=== PATIENT | male | born 1995 | race Caucasian/White ===

== ENCOUNTER 2021-06-23 13:00 | Emergency (ER) | payer OTHER ==
[~2021-06-23] VITALS: Ht 185.4 cm; Wt 82.0 kg
[2021-06-23] MEDS ORDERED: LORAZEPAM 1MG TABLET PO ONE (13:30)
[2021-06-23 15:15] VITALS: BP 111/68
[2021-06-23] MEDS ORDERED: SODIUM CHLORIDE 0.9% 1,000 ML IV ONE (15:30)
[2021-06-23] MEDS ORDERED: LORAZEPAM 2MG/ML CPJ IV ONE (15:30)
[2021-06-23 15:48] LABS: BASOPHILS % 0.8 % (0.0-2.0); EOSINOPHILS % 0.3 % (0.0-5.0); HEMATOCRIT. 43.3 % (42.0-52.0); HEMOGLOBIN. 14.8 g/dL (14.0-18.0); LYMPHOCYTES % 22.7 % (20.0-50.0); MEAN CORPUSCULAR VOLUME 90.7 fL (80.0-94.0); MEAN PLATELET VOLUME 8.8 fl (7.4-10.4); MONOCYTES % 11.5 % (2.0-8.0); NEUTROPHILS % 64.7 % (40.0-76.0); PLATELET 241 x1000/uL (130-400); RED BLOOD CELL COUNT 4.77 mill/uL (4.7-6.1); RED CELL DISTRIBUTION WIDTH 13.6 % (11.6-14.6)
[2021-06-23 15:51] LABS: CHLORIDE 104 mEq/L (98-107)
[2021-06-23 15:57] LABS: ETHANOL BLOOD < 10 mg/dL
== END 2021-06-23 16:01 | disposition left against medical advice (07) ==
LOC: ER 13:00
DX: F41.1 Generalized anxiety disorder (principal); F15.129 Other stimulant abuse with intoxication, unspecified; F20.9 Schizophrenia, unspecified; F31.9 Bipolar disorder, unspecified
CPT/HCPCS: 36415; 71045; 80053; 80320; 84484; 85025; 99284; J7030; G0480

== ENCOUNTER 2021-06-24 17:02 | Emergency (ER) | payer OTHER ==
[~2021-06-24] VITALS: Ht 172.7 cm; Wt 80.0 kg
[2021-06-25 00:50] VITALS: BP 113/90
[2021-06-26] MEDS ORDERED: CLON0.5T23 MT ×2 (14:03→14:07)
[2021-06-26] MEDS ORDERED: ZYDS20 PO ×3 (14:03→14:07)
== END 2021-06-25 00:50 | disposition home or self-care (01) ==
LOC: ER 17:02
DX: F15.90 Other stimulant use, unspecified, uncomplicated (principal); Z86.59 Personal history of other mental and behavioral disorders; I49.9 Cardiac arrhythmia, unspecified
CPT/HCPCS: 93005; 99283

== ENCOUNTER 2021-06-26 12:12 | Emergency (ER) | payer OTHER ==
[~2021-06-26] VITALS: Ht 182.9 cm; Wt 64.0 kg
[2021-06-26 13:18] VITALS: BP 160/93
[2021-06-26] MEDS ORDERED: ZYDS20 PO ×3 (14:03→14:07)
[2021-06-26] MEDS ORDERED: CLON0.5T23 MT ×2 (14:03→14:07)
== END 2021-06-26 14:53 | disposition home or self-care (01) ==
LOC: ER 12:12
DX: F20.9 Schizophrenia, unspecified (principal); F15.10 Other stimulant abuse, uncomplicated
CPT/HCPCS: 99282

== ENCOUNTER 2021-06-26 17:33 | Emergency (ER) | payer OTHER ==
[~2021-06-26] VITALS: Ht 182.9 cm; Wt 64.0 kg
[~2021-06-26 17:33] MED LIST: CLON0.5T23 MT; ZYDS20 PO
[2021-06-26 17:49] VITALS: BP 126/76
[2021-06-26 21:49] LABS: BASOPHILS % 0.9 % (0.0-2.0); EOSINOPHILS % 3.8 % (0.0-5.0); HEMATOCRIT. 43.4 % (42.0-52.0); HEMOGLOBIN. 14.8 g/dL (14.0-18.0); LYMPHOCYTES % 42.1 % (20.0-50.0); MEAN CORPUSCULAR HEMOGLOBIN 31.3 pg (28.0-32.0); MEAN PLATELET VOLUME 8.5 fl (7.4-10.4); MONOCYTES % 10.7 % (2.0-8.0); NEUTROPHILS % 42.5 % (40.0-76.0); PLATELET 231 x1000/uL (130-400); RED BLOOD CELL COUNT 4.72 mill/uL (4.7-6.1); RED CELL DISTRIBUTION WIDTH 13.5 % (11.6-14.6)
[2021-06-26 21:55] LABS: CHLORIDE 104 mEq/L (98-107)
[2021-06-26 21:59] LABS: ETHANOL BLOOD < 10 mg/dL
== END 2021-06-26 18:59 | disposition left against medical advice (07) ==
LOC: ER 17:33
DX: Z53.21 Procedure and treatment not carried out due to patient leaving prior to being seen by health care provider (principal)
CPT/HCPCS: 36415; 80053; 80320; 81003; 85025; G0480

== ENCOUNTER 2021-06-28 11:18 | Emergency (ER) | payer OTHER ==
[~2021-06-28] VITALS: Ht 177.8 cm; Wt 64.0 kg
[2021-06-28] MEDS ORDERED: LORAZEPAM 1MG TABLET PO ONE (11:45)
[2021-06-28 15:32] LABS: CLARITY URINE CLEAR (CLEAR); COLOR URINE YELLOW (YELLOW); KETONES URINE TRACE (NEGATIVE); LEUKOCYTE ESTERASE URINE NEGATIVE (NEGATIVE); NITRITE URINE NEGATIVE (NEGATIVE); OCCULT BLOOD URINE NEGATIVE (NEGATIVE); PH URINE 5.5 (4.5-8.0); PROTEIN URINE NEGATIVE (NEGATIVE)
[2021-06-28 15:51] LABS: *AMPHETAMINES SCREEN URINE PRESUMTIVE POSITIVE (NEGATIVE); *BARBITURATES SCREEN URINE NEGATIVE (NEGATIVE); *BENZODIAZEPINES SCREEN URINE NEGATIVE (NEGATIVE); *COCAINE SCREEN URINE NEGATIVE (NEGATIVE); METHADONE URINE SCREEN NEGATIVE (NEGATIVE); OPIATES URINE SCREEN NEGATIVE (NEGATIVE)
[2021-06-28 15:52] LABS: CANNABINOID URINE SCREEN NEGATIVE (NEGATIVE); PHENCYCLIDINE URINE SCREEN NEGATIVE (NEGATIVE)
[2021-06-28] MEDS ORDERED: LORAZEPAM 2MG/ML CPJ IV ONE (16:00)
[2021-06-28] MEDS ORDERED: HALOPERIDOL LACTATE 5MG/ML VIAL IM ONE (16:30)
[2021-06-28] MEDS ORDERED: LORAZEPAM 2MG/ML CPJ IM ONE (16:30)
[2021-06-28] MEDS ORDERED: SODIUM CHLORIDE 0.9% 1,000 ML IV ONE (16:45)
[2021-06-28 18:45] LABS: BASOPHILS % 0.7 % (0.0-2.0); EOSINOPHILS % 0.7 % (0.0-5.0); LYMPHOCYTES % 31.2 % (20.0-50.0); MEAN CORPUSCULAR HEMOGLOBIN 31.6 pg (28.0-32.0); MEAN CORPUSCULAR VOLUME 92.6 fL (80.0-94.0); MEAN PLATELET VOLUME 7.6 fl (7.4-10.4); MONOCYTES % 9.1 % (2.0-8.0); NEUTROPHILS % 58.3 % (40.0-76.0); PLATELET 96 x1000/uL (130-400); RED CELL DISTRIBUTION WIDTH 13.2 % (11.6-14.6)
[2021-06-28 18:48] LABS: HEMATOCRIT. 17.5 % (42.0-52.0)
[2021-06-28 18:58] LABS: CHLORIDE 127 mEq/L (98-107)
[2021-06-28 19:04] LABS: ETHANOL BLOOD < 10 mg/dL
[2021-06-28] MEDS ORDERED: DEXTROSE 50% WATER 50ML SYRINGE IV ONE (19:30)
[2021-06-28] MEDS ORDERED: POTASSIUM CHLORIDE INJ 40 MEQ in DEXT 5% WATER 500 ML IV ONE (19:30)
[2021-06-28 19:32] LABS: BASOPHILS % 1.2 % (0.0-2.0); HEMATOCRIT. 38.3 % (42.0-52.0); HEMOGLOBIN. 12.8 g/dL (14.0-18.0); LYMPHOCYTES % 33.4 % (20.0-50.0); MEAN CORPUSCULAR HEMOGLOBIN 30.9 pg (28.0-32.0); MEAN CORPUSCULAR VOLUME 92.5 fL (80.0-94.0); MEAN PLATELET VOLUME 8.3 fl (7.4-10.4); MONOCYTES % 8.9 % (2.0-8.0); NEUTROPHILS % 55.5 % (40.0-76.0); PLATELET 207 x1000/uL (130-400); RED BLOOD CELL COUNT 4.14 mill/uL (4.7-6.1); RED CELL DISTRIBUTION WIDTH 13.2 % (11.6-14.6)
[2021-06-28 19:34] LABS: CHLORIDE 110 mEq/L (98-107)
[2021-06-29] MEDS ORDERED: RISP05 MT (11:16)
[2021-06-29 11:34] VITALS: BP 122/60
== END 2021-06-29 11:36 | disposition home or self-care (01) ==
LOC: ER 11:41 → EDBEDREQ 20:05 → CANBEDREQ 06-29 01:02 → ER 06-29 11:36
DX: F30.9 Manic episode, unspecified (principal); F15.10 Other stimulant abuse, uncomplicated; D64.9 Anemia, unspecified; E87.6 Hypokalemia; E16.2 Hypoglycemia, unspecified; F20.9 Schizophrenia, unspecified
CPT/HCPCS: 36415; 80053; 80305; 80320; 81003; 83735; 85025; 96365; 96366; 96372; 96375; 99285; J1630; J2060; J3480; J7060; Z7610; 86920; G0480

== ENCOUNTER 2021-07-06 14:25 | Emergency (ER) | payer OTHER ==
[~2021-07-06] VITALS: Ht 182.9 cm; Wt 64.0 kg
[~2021-07-06 14:25] MED LIST changes: +RISP05 MT
[2021-07-06 15:31] LABS: HEMATOCRIT. 44.7 % (42.0-52.0); HEMOGLOBIN. 14.7 g/dL (14.0-18.0); LYMPHOCYTES % 25.3 % (20.0-50.0); MEAN CORPUSCULAR HEMOGLOBIN 30.5 pg (28.0-32.0); MEAN CORPUSCULAR VOLUME 92.8 fL (80.0-94.0); MEAN PLATELET VOLUME 8.6 fl (7.4-10.4); MONOCYTES % 7.6 % (2.0-8.0); NEUTROPHILS % 64.1 % (40.0-76.0); PLATELET 209 x1000/uL (130-400); RED BLOOD CELL COUNT 4.81 mill/uL (4.7-6.1); RED CELL DISTRIBUTION WIDTH 12.9 % (11.6-14.6)
[2021-07-06 15:40] LABS: CHLORIDE 108 mEq/L (98-107)
[2021-07-06 15:44] LABS: ETHANOL BLOOD < 10 mg/dL
[2021-07-06] MEDS ORDERED: LORAZEPAM 0.5MG TABLET PO ONE (15:45)
[2021-07-06 16:10] LABS: CLARITY URINE CLEAR (CLEAR); COLOR URINE YELLOW (YELLOW); KETONES URINE NEGATIVE (NEGATIVE); LEUKOCYTE ESTERASE URINE TRACE (NEGATIVE); NITRITE URINE NEGATIVE (NEGATIVE); OCCULT BLOOD URINE NEGATIVE (NEGATIVE); PH URINE 6.5 (4.5-8.0); PROTEIN URINE NEGATIVE (NEGATIVE); SPECIFIC GRAVITY URINE 1.016 (1.005-1.030); UROBILINOGEN URINE 0.2 E.U./dL (0.2-1.0)
[2021-07-06 16:35] LABS: *AMPHETAMINES SCREEN URINE PRESUMTIVE POSITIVE (NEGATIVE); *BARBITURATES SCREEN URINE NEGATIVE (NEGATIVE); *COCAINE SCREEN URINE NEGATIVE (NEGATIVE)
[2021-07-06 16:36] LABS: *BENZODIAZEPINES SCREEN URINE NEGATIVE (NEGATIVE); CANNABINOID URINE SCREEN NEGATIVE (NEGATIVE); METHADONE URINE SCREEN NEGATIVE (NEGATIVE); OPIATES URINE SCREEN PRESUMTIVE POSITIVE (NEGATIVE); PHENCYCLIDINE URINE SCREEN NEGATIVE (NEGATIVE)
[2021-07-07] MEDS ORDERED: OLANZAPINE 5MG TABLET ODT PO SCH (09:00)
[2021-07-07 14:30] VITALS: BP 110/75
== END 2021-07-07 15:04 ==
LOC: ER 14:25
DX: F20.0 Paranoid schizophrenia (principal); R45.851 Suicidal ideations; F15.10 Other stimulant abuse, uncomplicated; F41.9 Anxiety disorder, unspecified; Z20.822 Contact with and (suspected) exposure to COVID-19; Z75.1 Person awaiting admission to adequate facility elsewhere
CPT/HCPCS: 36415; 80053; 80305; 80307; 80320; 80329; 81003; 85025; 87426; 93005; 99285; C9803; U0003; U0005; G0480